=== PATIENT | female | born 1975 | race Caucasian/White ===

== ENCOUNTER 2018-08-13 11:18 | Emergency (ER) | payer OTHER ==
[~2018-08-13] VITALS: Ht 177.8 cm; Wt 77.1 kg
[~2018-08-13 11:18] MED LIST: CIPRO500 MG; NOLVADEX10 MG; SEPTRA DS TABLE1 TAB
== END 2018-08-13 14:40 | disposition home or self-care (01) ==
LOC: ER 11:18
DX: S60.512A Abrasion of left hand, initial encounter (principal); W55.03XA Scratched by cat, initial encounter; Y93.89 Activity, other specified; Y92.89 Other specified places as the place of occurrence of the external cause; Y99.8 Other external cause status

== ENCOUNTER 2019-06-23 21:55 | Inpatient (IN) | payer OTHER ==
[~2019-06-23] VITALS: Ht 177.8 cm; Wt 82.6 kg
--- NOTE | 2019-06-23 22:16 | NUR ---
PTE INDICA QUE TIENE LAS PLAQUETAS BAJITAS (27) PTE REFIERE LEXA SIDO PTE DE CANCER. PTE ALERTA CONSCIENTE Y ORIENTADA X3
--- NOTE | 2019-06-23 22:27 | NUR ---
PTE ES EVALUADA POR LA DRA. LEONARDO QUIEN ORDENA PRUEBAS DE LABORATORIO. RN. Jon FREEMAN COLECTA MUESTRAS DE KARAN.
--- NOTE | 2019-06-24 00:49 | NUR ---
PT ALERTA Y ORIENTADA X3 ESFERAS SE RECIBE EN CAMA CON BARANDAS ELEVADAS. JANINA AL MOMENTO. RE-EVALUADA POR DRA LEONARDO. SE LE ORIENTA SOBRE TRATAMIENTO ORDENADO, REFIERE ENTEDER. SE MARY KATE MUESTRAS DE KARAN PARA TUBOS PILOS PARA ORDEN DE 2 AFERESIS O (20-PLAQUETAS), SE REALIZA VENOPUNCION CON TECNICAS ASEPTICAS. SE NOTIFIA A MS ROMO DE LABORATORIO DE [place]UX[place]IO [place] PARA REQUISAR DICHA ORDEN A LAS 12:42AM. PT Y MD FIRMAN HOJA DE TRANSFUCION DE KARAN Y JOBY DERIVADOS, SE ATACHA A RECORD MEDICO. PT [place], SE MANTIENE BAJO OBSERVACION POR CAMBIOS EN GARY.
--- NOTE | 2019-06-24 07:21 | NUR ---
SE RECIBE DE TURNO ANTERIOR. PACIENTE FEMENINA. ALERTA Y ORIENTADA EN NIMISHA ESFERAS. BUEN PATRON RESPIRATORIO. PIEL TIBIA AL TACTO. CANALIZACION PATENTE, ELTON DE EDEMA Y/O ENROJECIMIENTO CON SALINE LOCK COLOCADO. PACIENTE EN ESPERA DE CONSULTA CON DR ZANDER GREER Y DR LARON GANT. ADEMAS ESTA EN ESPERA DE DISPONIBILIDAD DE UNIDADES DE PLAQUETAS PARA TRANSFUNDIR.
--- NOTE | 2019-06-24 09:41 | NUR ---
SE LLAMA A PERSONAL DE BANCO DE KARAN Y MS HARTLEY INDICA AUN NO SE ENCUENTRAN DISPONIBLES LAS 20U DE PLT Y SE LE PROVEERA SEGUIMIENTO.
[2019-06-27] MEDS ORDERED: PREDNISONE 5MG PO (16:42)
[2019-06-27] MEDS ORDERED: PREDNISONE20 MG PO (16:42)
[2019-06-27] MEDS ORDERED: PANTOPRAZOLE SO40 MG PO (16:42)
[2019-06-27] MEDS ORDERED: PREDNISONE10 MG PO (16:42)
== END 2019-06-27 17:16 | disposition home or self-care (01) | DRG 813 ==
LOC: ER 21:55 → MEDJ 06-24 13:21 → SEC-K 06-24 13:21 → MEDJ 06-24 20:06
PROVIDERS: ADMIT Internal Medicine
PROC: 30233R1 Transfusion of Nonautologous Platelets into Peripheral Vein, Percutaneous Approach (ICD-10-PCS; principal; 2019-06-24)
PROC: 8E0ZXY6 Isolation (ICD-10-PCS; 2019-06-24)
DX: D69.59 Other secondary thrombocytopenia (principal); Z85.3 Personal history of malignant neoplasm of breast; Z08 Encounter for follow-up examination after completed treatment for malignant neoplasm

== ENCOUNTER 2019-08-10 14:39 | Outpatient (CLI) | payer OTHER ==
[~2019-08-10 14:39] MED LIST changes: +PANTOPRAZOLE SO40 MG PO; +PREDNISONE 5MG PO; +PREDNISONE10 MG PO; +PREDNISONE20 MG PO
== END 2019-08-10 14:49 | disposition home or self-care (01) ==
LOC: LAB 14:39
DX: D69.3 Immune thrombocytopenic purpura (principal)

== ENCOUNTER 2022-02-08 13:19 | Emergency (ER) | payer OTHER ==
[~2022-02-08] VITALS: Ht 177.8 cm; Wt 90.7 kg
[2022-02-08] MEDS ORDERED: MORGIDOX100 MG PO (18:02)
[2022-02-08] MEDS ORDERED: TUSSIN DM LIQU118 ML PO (18:05)
== END 2022-02-08 18:12 | disposition home or self-care (01) ==
LOC: ER 13:19
DX: N39.0 Urinary tract infection, site not specified (principal); J06.9 Acute upper respiratory infection, unspecified